=== PATIENT | female | born 1995 | race Caucasian/White ===

== ENCOUNTER 2017-12-20 11:40 | Emergency (ER) | payer MEDICAID ==
[~2017-12-20] VITALS: Ht 165.1 cm; Wt 85.0 kg
[2017-12-20 11:58] VITALS: BP 114/60
[2017-12-20] MEDS ORDERED: ACETAMINOPHEN 325MG TABLET PO ONE (12:30)
== END 2017-12-20 13:38 | disposition left against medical advice (07) ==
LOC: ER 12:53
DX: O20.0 Threatened abortion (principal); O26.892 Other specified pregnancy related conditions, second trimester; R30.0 Dysuria; Z3A.16 16 weeks gestation of pregnancy
CPT/HCPCS: 99283; Z7610